=== PATIENT | female | born 1995 | race African-American/Black ===

== ENCOUNTER 2017-11-10 20:38 | Emergency (ER) | payer OTHER ==
[~2017-11-10] VITALS: Ht 175.3 cm; Wt 128.4 kg
[2017-11-10 20:45] VITALS: BP 156/98
[2017-11-10] MEDS ORDERED: PRENATAL PO (20:51)
[2017-11-10] MEDS ORDERED: CLEOCIN HCL150 MG PO (21:12)
== END 2017-11-10 21:33 | disposition home or self-care (01) ==
LOC: ER 20:38
DX: O26.893 Other specified pregnancy related conditions, third trimester (principal); Z3A.29 29 weeks gestation of pregnancy; L02.31 Cutaneous abscess of buttock

== ENCOUNTER 2017-12-05 07:43 | Emergency (ER) | payer OTHER ==
[~2017-12-05] VITALS: Ht 175.3 cm; Wt 128.8 kg
[~2017-12-05 07:43] MED LIST: CLEOCIN HCL150 MG PO; PRENATAL PO
[2017-12-05] MEDS ORDERED: ZUPLENZ4 MG PO (08:16)
[2017-12-05] MEDS ORDERED: ZOLOFT20 MG/1 ML PO (08:17)
[2017-12-05 08:18] LABS: URINE BILIRUBIN NEGATIVE (Negative); URINE BLOOD NEGATIVE (Negative); URINE CLARITY CLEAR; URINE COLOR YELLOW; URINE GLUCOSE-RANDOM* NEGATIVE (Negative); URINE KETONES NEGATIVE (Negative); URINE LEUKOCYTES-REFLEX NEGATIVE (Negative); URINE NITRITE-REFLEX NEGATIVE (Negative); URINE PROTEIN (DIPSTICK) NEGATIVE (Negative); URINE UROBILINOGEN 0.2 E.U./dl (0.2-1.0)
[2017-12-05 08:33] LABS: HEMATOCRIT 33.1 % (37.0-47.0); HEMOGLOBIN 11.4 gm/dL (12.0-15.0); MCH 30.2 pg (26.0-34.0); MCHC 34.5 g/dL (28.0-37.0); MCV 87.5 fL (80.0-100.0); RBC 3.78 mil/uL (4.20-5.00); RDW 13.3 % (10.5-14.5); WBC 8.5 thou/uL (4.0-11.0)
[2017-12-05 08:42] LABS: CALCIUM 8.5 mg/dL (8.5-10.1); CREATININE 0.6 mg/dL (0.6-1.0); POTASSIUM 3.9 mmol/L (3.5-5.1)
[2017-12-05 08:47] LABS: ALBUMIN 2.6 g/dL (3.4-5.0); TOTAL BILIRUBIN 0.2 mg/dL (<0.1-1.0); TOTAL PROTEIN 7.1 g/dL (6.4-8.2)
[2017-12-05 09:45] VITALS: BP 149/54
== END 2017-12-05 09:46 | disposition home or self-care (01) ==
LOC: ER 07:43
PROVIDERS: Student in an Organized Health Care Education/Training Program
DX: O26.893 Other specified pregnancy related conditions, third trimester (principal); R10.11 Right upper quadrant pain; Z3A.33 33 weeks gestation of pregnancy

== ENCOUNTER 2018-05-13 18:06 | Emergency (ER) | payer OTHER ==
[~2018-05-13] VITALS: Ht 172.7 cm; Wt 113.4 kg
[~2018-05-13 18:06] MED LIST changes: +ZOLOFT20 MG/1 ML PO; +ZUPLENZ4 MG PO
[2018-05-13 18:07] VITALS: BP 128/88
[2018-05-13] MEDS ORDERED: ZOLOFT25 MG PO (18:50)
== END 2018-05-13 19:05 | disposition home or self-care (01) ==
LOC: ER 18:06
DX: F41.9 Anxiety disorder, unspecified (principal); Z76.0 Encounter for issue of repeat prescription

== ENCOUNTER 2019-08-27 18:52 | Emergency (ER) | payer OTHER ==
[~2019-08-27] VITALS: Ht 175.3 cm; Wt 113.4 kg
[~2019-08-27 18:52] MED LIST changes: +ZOLOFT25 MG PO
[2019-08-27 20:59] VITALS: BP 135/105
== END 2019-08-27 21:03 | disposition home or self-care (01) ==
LOC: ER 18:52
DX: B34.9 Viral infection, unspecified (principal); Z20.828 Contact with and (suspected) exposure to other viral communicable diseases

== ENCOUNTER 2020-06-01 09:18 | Emergency (ER) | payer OTHER ==
[~2020-06-01] VITALS: Ht 175.3 cm; Wt 145.2 kg
[2020-06-01] MEDS ORDERED: SERTRALINE HCL50 MG PO (09:22)
[2020-06-01 09:45] LABS: URINE BILIRUBIN NEGATIVE (Negative); URINE BLOOD NEGATIVE (Negative); URINE CLARITY CLEAR; URINE COLOR YELLOW; URINE GLUCOSE-RANDOM* NEGATIVE (Negative); URINE KETONES NEGATIVE (Negative); URINE LEUKOCYTES-REFLEX NEGATIVE (Negative); URINE NITRITE-REFLEX NEGATIVE (Negative); URINE PROTEIN (DIPSTICK) NEGATIVE (Negative); URINE SPECIFIC GRAVITY 1.025 (1.005-1.035); URINE UROBILINOGEN 0.2 E.U./dl (0.2-1.0)
[2020-06-01 12:09] LABS: ABSOLUTE NEUTROPHILS 5.1 thou/uL (1.4-8.2); BASOPHILS 0.7 % (0.0-2.0); HEMATOCRIT 36.3 % (37.0-47.0); LYMPHOCYTES 30.4 % (24.0-44.0); MCH 29.7 pg (26.0-34.0); MCV 90.1 fL (80.0-100.0); MONOCYTES 7.4 % (1.0-8.0); PLATELET COUNT 300 thou/uL (150-400); POLYS 60.5 % (36.0-66.0); RBC 4.03 mil/uL (4.20-5.00); RDW 13.3 % (10.5-14.5); WBC 8.4 thou/uL (4.0-11.0)
[2020-06-01 12:17] LABS: CALCIUM 8.8 mg/dL (8.5-10.1); CREATININE 0.7 mg/dL (0.6-1.0); POTASSIUM 4.3 mmol/L (3.5-5.1)
[2020-06-01] MEDS ORDERED: MOBIC15 MG PO (14:21)
[2020-06-01 14:39] VITALS: BP 133/85
== END 2020-06-01 14:45 | disposition home or self-care (01) ==
LOC: ER 09:18
PROVIDERS: Emergency Medicine
DX: R10.33 Periumbilical pain (principal)